=== PATIENT | female | born 1955 | race Caucasian/White ===

== ENCOUNTER 2020-01-10 21:29 | Emergency (ER) | payer OTHER ==
[2020-01-10] MEDS ORDERED: Morphine 10 MG/ML Syringe IM ONE (23:17)
--- NOTE | 2020-01-10 23:26 | EDM.PDOC ---
ED HPI GENERAL MEDICAL PROBLEM - General Chief Complaint: Upper Extremity Injury/Pain Stated Complaint: PAIN IN UPPER/LOWER LT ARM Time Seen by Provider: 01/10/20 23:15 Source of Information: Reports: Patient History Limitations: Reports: No Limitations - History of Present Illness INITIAL COMMENTS - FREE TEXT/NARRATIVE: Patient presents for evaluation of injury to her left arm today. It inadvertently was pinned between a boat and their dock. The arm is moderately uncomfortable and she resists movement. No other injuries at this time. Pain is 9/10. Onset: Today, Sudden Location: Reports: Upper Extremity, Left Quality: Reports: Throbbing Severity: Severe Improves with: Reports: None Worsens with: Reports: Movement Context: Reports: Trauma Associated Symptoms: Reports: No Other Symptoms Left Wrist Pain Score (Numeric/FACES): 9 - Related Data Allergies Allergy/AdvReac Type Severity Reaction Status Date / Time Penicillins Allergy Rash Verified 01/10/20 22:58 Home Meds: Home Meds Naproxen Sodium [Aleve] 2 tab PO ASDIRECTED 01/10/20 [History] Past Medical History - Infectious Disease History Infectious Disease History: Reports: Other (See Below) Other Infectious Disease History: unknown - Past Surgical History Female Surgical History: Reports: Hysterectomy Social & Family History - Tobacco Use Smoking Status *Q: Never Smoker Second Hand Smoke Exposure: No - Caffeine Use Caffeine Use: Reports: Coffee - Recreational Drug Use Recreational Drug Use: No Review of Systems - Review of Systems Review Of Systems: Comprehensive ROS is negative, except as noted in HPI. ED EXAM, GENERAL - Physical Exam Exam: See Below Exam Limited By: No Limitations General Appearance: Alert, Moderate Distress Respiratory/Chest: No Respiratory Distress Cardiovascular: Regular Rate, Rhythm Extremities: Normal Capillary Refill, Arm Pain (Left forearm and wrist.), Limited Range of Motion (Left wrist region.) Neurological: Alert ED TRAUMA EXTREMITY PROCEDURES - Splinting Left Upper Extremity Splint Site: Left forearm and hand Pre-Procedure NV Status: Normal Post-Procedure NV Status: Normal Splint Material: Fiberglass Splint Design: Volar Applied & Form Fitted By: Provider Provider Post-Splint Application NV Check: NV Status Normal Complications: No Course - Vital Signs Last Recorded V/S: Last Vital Signs Temp 37.1 C 01/10/20 23:01 Pulse 75 01/10/20 23:01 Resp 16 01/10/20 23:01 BP 167/86 H 01/10/20 23:01 Pulse Ox 99 01/10/20 23:01 - Orders/Labs/Meds Meds: Medications Discontinued Medications Generic Name Dose Route Start Last Admin Trade Name Gena PRN Reason Stop Dose Admin Bacitracin 1 dose 01/10/20 23:53 01/11/20 00:22 Bacitracin Oint 1 Gm TOP 01/10/20 23:54 1 dose ONETIME ONE Administration Morphine Sulfate 5 mg 01/10/20 23:17 01/10/20 23:34 Morphine IM 01/10/20 23:18 5 mg ONETIME ONE Administration - Re-Assessments/Exams Free Text/Narrative Re-Assessment/Exam: 01/11/20 04:26 Patient is moderately uncomfortable. She will be given morphine sulfate 10 mg as a single IM dose. X-ray of left wrist ordered and reviewed by me shows a nondisplaced fracture of the distal radius. I returned later to review x-ray results. Pain is now 5/10. She will need a volar splint. An Ortho-Glass volar splint was applied by myself. She will be placed in an arm sling. She received an [employer] supply of hydrocodone 5/325 mg, 20 tablets, to be used as needed for pain. She should keep the splint on and dry until recheck with hometown provider next week. Return to ER if feeling worse in any way. Departure - Departure Time of Disposition: 00:53 Disposition: Home, Self-Care 01 Clinical Impression: Fracture of radius Qualifiers: Encounter type: initial encounter Radius location: distal physis (incl. Salter- Harper) Fracture alignment: nondisplaced Laterality: left Qualified Code(s): S59.292A - Other physeal fracture of lower end of radius, left arm, initial encounter for closed fracture Puncture wound of left upper arm Qualifiers: Encounter type: initial encounter Qualified Code(s): S41.132A - Puncture wound without foreign body of left upper arm, initial encounter - Discharge Information Instructions: Radial Fracture Referrals: PCP,None [Primary Care Provider] - Forms: ED Department Discharge Additional Instructions: Keep splint on and dry until recheck with physician next week. Use hydrocodone as needed for pain. Elevate the arm to improve comfort. Wear arm sling if you find it is helpful. Return to ER if feeling worse in any way. Sepsis Event Note (ED) - Evaluation Sepsis Screening Result: No Definite Risk - Focused Exam Vital Signs: Vital Signs Temp Pulse Resp BP Pulse Ox 01/10/20 23:01 37.1 C 75 16 167/86 H 99 01/10/20 22:53 37.1 C 75 16 167/86 H 99
--- NOTE | 2020-01-10 23:45 | CRLCR ---
INDICATION: Left wrist and forearm trauma, crush injury TECHNIQUE: Wrist radiograph 3 views left COMPARISON: None FINDINGS: Bone: There is a nondisplaced fracture present in the metaphyseal region of the distal radius. Moderate diffuse osteopenia is noted. Joint: Moderate to severe osteoarthritis of the 1st carpometacarpal joint is noted. Soft tissue: Unremarkable. No radiopaque foreign bodies are seen. IMPRESSION: 1. There is a nondisplaced fracture present in the metaphyseal region of the distal radius. Dictated by Lan Shore MD @ 01/10/2020 11:43:04 PM Dictated by: Lan Shore MD @ 01/10/2020 23:43:09 (Electronically Signed)
[2020-01-10] MEDS ORDERED: Bacitracin Oint 1 GM U/D Packet TOP ONE (23:53)
== END 2020-01-11 01:44 | disposition home or self-care (01) ==
LOC: JP.ED 21:29
DX: S52.502A Unspecified fracture of the lower end of left radius, initial encounter for closed fracture (principal); S41.132A Puncture wound without foreign body of left upper arm, initial encounter; Z88.0 Allergy status to penicillin; W23.0XXA Caught, crushed, jammed, or pinched between moving objects, initial encounter
CPT/HCPCS: 29125; 73110; 96372; 99283; J2270